=== PATIENT | male | born 1965 | race African-American/Black ===

== ENCOUNTER 2024-01-15 03:46 | Day surgery (SDC) | payer OTHER, SELFPAY ==
[2024-01-14 10:25] VITALS: BMI 34.7
[2024-01-15 07:40] VITALS: BP 125/71; PULSE 65; RESP 20; TEMP 35.9; O2SAT 99
[2024-01-15] MEDS: LACTATED RINGERS 1,000 ML 150 ML IV CONT (07:57)
[2024-01-15 08:03] LABS: Glucose Point of Care 62 mg/dl (65-105)
[2024-01-15] MEDS: DEXTROSE 50% 25 GM/50 ML SYRINGE IV PUSH (08:10)
[2024-01-15 08:33] LABS: Glucose Point of Care 85 mg/dl (65-105)
--- NOTE | 2024-01-15 08:43 | SUR.PREOP ---
0804: PT'S BLOOD SUGAR 62, ASSYMPTOMATIC, DR MIDDLETON NOTIFIED AND NEW ORDERS RECEIVED. 0813: ORDERS CARRIED OUT ORDERED. 0828: REPEAT BLOOD SUGAR 85, DR MIDDLETON NOTIFIED, NO NEW ORDERS.
--- NOTE | 2024-01-15 08:47 | P.PNAN_ITS ---
Anes - Initial Pre Proc Eval Procedure: Operation Date: 01/15/24 09:00 Proposed Procedures p Colonoscopy - Dakota Steiner MD Date/Time: 01/15/24 08:47 Surgeon: Dakota Steiner MD Pre Op Diagnosis: Poor prep Patient Data Age: 58 Gender: M Height: 1.73 m Weight: 98.8 kg Last Vital Signs Temp 96.6 F L 01/15/24 07:40 Pulse 65 01/15/24 07:40 Resp 20 01/15/24 07:40 BP 125/71 01/15/24 07:40 Pulse Ox 99 01/15/24 07:40 O2 Del Method Room Air 01/15/24 07:40 Allergies Allergy/AdvReac Type Severity Reaction Status Date / Time pork derived (porcine) AdvReac Nausea and Verified 01/15/24 07:39 Vomiting Pork/Porcine Containing AdvReac Nausea and Verified 01/15/24 07:39 Products Vomiting Home Medications Medication Instructions Recorded Confirmed Type aspirin 81 mg tablet 81 mg PO DAILY 01/14/24 01/14/24 History atorvastatin 20 mg tablet 20 mg PO HS 01/14/24 01/14/24 History lisinopril 2.5 mg tablet 2.5 mg PO DAILY 01/14/24 01/14/24 History metformin 1,000 mg tablet 1,000 mg PO BID 01/14/24 01/14/24 History Laboratory Tests 01/15/24 01/15/24 08:01 08:30 POC Capillary Glucose 62 L mg/dl 85 mg/dl (65-105) (65-105) Patient hx anesthesia problems: none Family hx anesthesia problems: none Results Review: All pre-operative results and documents have been reviewed as part of the pre- operative evaluation. [facility] Social History Social History Living arrangements: incarcerated Anes - Eval Final PreProcedure Day of Procedure 01/15/24 08:47 Patient weight: overweight Heart: regular rate and rhythm Lungs: clear to auscultation Airway: Mallampati scale Neurological: alert and oriented Last oral intake: >/= 8 hours ASA classification: III Emergent: no Anesthetic plan: proceed Anesthesia type and monitoring: general GIVS and standard monitoring Results Review: All pre-operative results and documents have been reviewed as part of the pre- operative evaluation. HTN, hyperlipidemia, DM w fsbs 62, 1/2 amp d50 given. Informed Consent: The patient's anesthetic plan and its attendant risks and benefits were discussed with the patient/family/POA. Questions were solicited and answers provided to the satisfaction of the patient/family/POA.
--- NOTE | 2024-01-15 09:14 | PM.HPGS ---
History of Present Illness History of Present Illness Consent: Risks, benefits, and alternatives have been discussed and questions answered. Patient agrees to proceed with procedure. Chief complaint: Poor prep Narrative: Gopal Saul is a 58 year old male here for screening colonoscopy, last one 2 years ago with poor prep. He is a prisoner. Review of Systems Review of Systems: All systems reviewed & are unremarkable except as noted in HPI and below PMFSH Past Medical History Medical History (Updated 01/15/24 @ 09:17 by Dakota Steiner MD) Colon cancer screening Social History Social History Living arrangements: incarcerated Meds Home Medications and Allergies Home Medications Medication Instructions Recorded Confirmed Type aspirin 81 mg tablet 81 mg PO DAILY 01/14/24 01/14/24 History atorvastatin 20 mg tablet 20 mg PO HS 01/14/24 01/14/24 History lisinopril 2.5 mg tablet 2.5 mg PO DAILY 01/14/24 01/14/24 History metformin 1,000 mg tablet 1,000 mg PO BID 01/14/24 01/14/24 History Allergies Allergy/AdvReac Type Severity Reaction Status Date / Time pork derived (porcine) AdvReac Nausea and Verified 01/15/24 07:39 Vomiting Pork/Porcine Containing AdvReac Nausea and Verified 01/15/24 07:39 Products Vomiting Vital Signs Vital Signs - 24 hr 01/15/24 07:40 Temperature 96.6 F L Pulse Rate 65 Respiratory Rate 20 Blood Pressure 125/71 Pulse Oximetry 99 Oxygen Delivery Room Air Exam Const: General: comfortable and no acute distress HENMT: Face/Nose/Sinus: Normal nares present Eyes: General: appearance normal, both eyes and all related structures Neck: Neck: no JVD Resp: Auscultation: clear to auscultation bilaterally Cardio: Rate: regular rate Rhythm: regular rhythm GI: Inspection: non-distended GI Palp: Yes Soft to palpation Skin: General skin exam: normal color Neuro: General: gait normal Speech: normal speech Extrem: General: normal to inspection Psych: Mental Status: mental status grossly normal Assessment and Plan Assessment and plan (1) Colon cancer screening: Code(s): Z12.11 - Encounter for screening for malignant neoplasm of colon Status: Acute Assessment and Plan: colonoscopy
[2024-01-15 09:38] VITALS: BP 99/65; PULSE 63; RESP 20; O2SAT 96
[2024-01-15 09:48] VITALS: BP 103/62; PULSE 61; RESP 20; O2SAT 100
[2024-01-15 09:58] VITALS: BP 116/75; PULSE 60; RESP 20; O2SAT 100
== END 2024-01-15 10:10 | disposition home or self-care (01) ==
PROVIDERS: Visit Provider Internal Medicine Gastroenterology
PROC: 0DJD8ZZ Inspection of Lower Intestinal Tract, Via Natural or Artificial Opening Endoscopic (ICD-10-PCS; CPT 45378; principal; 2024-01-15 09:00)
DX: Z12.11 Encounter for screening for malignant neoplasm of colon (principal); D12.2 Benign neoplasm of ascending colon; K57.30 Diverticulosis of large intestine without perforation or abscess without bleeding; I10 Essential (primary) hypertension; E78.5 Hyperlipidemia, unspecified; E11.9 Type 2 diabetes mellitus without complications; Z79.82 Long term (current) use of aspirin; Z79.84 Long term (current) use of oral hypoglycemic drugs
CPT/HCPCS: 45385; 82948; 88305; J2003; J2704; J7120